=== PATIENT | male | born 1965 | race American Indian/Alaskan Native ===

== ENCOUNTER 2016-12-16 13:12 | Inpatient (IN) | payer MEDICARE ==
[2016-12-16 15:01] LABS: Bacteria,Urine 1+ /HPF (Negative); Bilirubin,Urine SM (Negative); Blood,Urine NEG (Negative); Ketones,Urine NEG (Negative); Leukocyte Esterase,Urine SM (Negative); Mucus,Urine 2+ /HPF; Nitrite,Urine NEG (Negative); Protein,Urine <15 mg/dL mg/dL (Negative)
[2016-12-16 15:05] LABS: Basophils % (Auto) 0.5 % (0.0-1.8); Eosinophils % (Auto) 0.6 % (0.0-4.3); Hematocrit 23.1 % (35.5-45.6); Mean Corpuscular HGB Conc 35 % (32-34); Mean Corpuscular Hemoglobin 35 pg (28-32); Mean Corpuscular Volume 102 fl (84-94); Red Blood Count 2.27 M/mm3 (3.65-5.03); Red Cell Distribution Width 17.7 % (13.2-15.2); White Blood Count 4.7 K/mm3 (4.5-11.0)
[2016-12-16 15:14] LABS: INR 1.73 (0.87-1.13)
[2016-12-16 15:15] LABS: Partial Thromboplastin Time 42.3 Sec. (24.2-36.6)
[2016-12-16 15:21] LABS: Alanine Aminotransferase 73 units/L (7-56); Albumin 2.3 g/dL (3.9-5); Albumin/Globulin Ratio 0.6 %; Alkaline Phosphatase 302 units/L (35-129); Anion Gap 14 mmol/L; Blood Urea Nitrogen 3 mg/dL (9-20); Calcium 7.9 mg/dL (8.4-10.2); Carbon Dioxide 27 mmol/L (22-30); Chloride 97.1 mmol/L (98-107); Glucose 92 mg/dL (75-100); Potassium 3.2 mmol/L (3.6-5.0); Sodium 135 mmol/L (137-145); Total Protein 5.9 g/dL (6.3-8.2)
[2016-12-16] MEDS ORDERED: MAGNESIUM SULFATE 2GM/50ML 2 GM/50 ML BAG IV ONE (15:47)
[2016-12-16] MEDS ORDERED: K-DUR PO ONE (15:47)
[2016-12-16] MEDS ORDERED: CEPHULAC PO ONE (15:48)
[2016-12-16] MEDS ORDERED: ROCEPHIN/NS 1 GM/50 ML 1 GM/50 ML BAG IV ONE (15:50)
[2016-12-16 16:11] LABS: Platelet Count 72 K/mm3 (140-440)
[2016-12-16 16:33] LABS: Albumin 2.3 g/dL (3.9-5); Albumin/Globulin Ratio 0.7 %; Bilirubin,Direct 4.7 mg/dL (0-0.2); Bilirubin,Indirect 2.7 mg/dL; Bilirubin,Total 7.4 mg/dL (0.1-1.2); Total Protein 5.8 g/dL (6.3-8.2)
--- NOTE | 2016-12-16 16:53 | Emergency Department Report ---
- General Chief complaint: Weakness Stated complaint: SICK Time Seen by Provider: 12/16/16 14:21 Source: patient Mode of arrival: Stretcher Limitations: No Limitations - History of Present Illness Initial comments: 51-year-old male with a past medical history of liver disease and alcohol abuse presents to the hospital from [facility] with generalized weakness. Patient is slightly lethargic and a overall poor historian. Pt admitted ont [facility] for alcohol abuse. No SI/HI. He just states he feels weak and eaten today. No pain complaints or focal weakness or numbness reported. Patient denies nausea, vomiting, or diarrhea. Patient does not know the cause of the liver disease denies a previous diagnosis of hepatitis. Severity scale (0 -10): 0 - Related Data Allergies Allergy/AdvReac Type Severity Reaction Status Date / Time No Known Allergies Allergy Unverified 12/16/16 13:45 ED Review of Systems ROS: Stated complaint: SICK Other details as noted in HPI Comment: All other systems reviewed and negative Other: Constitutional: No fevers chills Eyes: No eye pain visual changes ENT: No ear pain or throat pain Neck: Denies pain Respiratory: Denies cough wheezing shortness of breath Cardiovascular: Denies chest pain, palpitations, syncope GI: Denies abdominal pain, nausea, vomiting, diarrhea : Denies dysuria Musculoskeletal: Denies back pain Skin: Denies rash, lesions, erythema Neurologic: Denies headache, numbness Psychiatric: Denies suicidal ideation, hallucinations ED Past Medical Hx - Past Medical History Hx Liver Disease: Yes - Surgical History Past Surgical History?: No - Social History Smoking Status: Current Every Day Smoker Substance Use Type: Alcohol ED Physical Exam - General Limitations: No Limitations - Other Other exam information: General: No limitations, patient is alert in no acute distress Head exam: Atraumatic, normocephalic Eyes exam: Jaundice ENT: Moist mucous membrane, normal oropharynx Neck exam: Normal inspection, full range of motion, no meningismus nontender Respiratory exam: Clear to auscultation bilateral, no wheezes, rales, crackles Cardiovascular: Normal rate and rhythm, normal heart sounds Abdomen: Soft, nondistended, and nontender, with normal bowel sounds, no rebound, or guarding Extremity: Full range of motion normal inspection no deformity Back: Normal Inspection, full range of motion, no tenderness Neurologic: Lethargic, equal hand knuckler and foot dorsiflexion, sensation grossly intact Psychiatric: normal affect, normal mood Skin: Warm, dry, intact ED Course Vital Signs 12/16/16 13:29 Temperature 98.8 F Pulse Rate 82 Respiratory 20 Rate Blood Pressure 114/76 O2 Sat by Pulse 100 Oximetry - Reevaluation(s) Reevaluation #1: 12/16/16 16:56 Treated with potassium and lactulose and magnesium ED Medical Decision Making - Lab Data Result diagrams: 12/16/16 14:49 12/16/16 14:49 Lab Results 12/16/16 12/16/16 12/16/16 Range/Units 14:23 14:49 14:49 WBC 4.7 (4.5-11.0) K/mm3 RBC 2.27 L (3.65-5.03) M/mm3 Hgb 8.0 L (11.8-15.2) gm/dl Hct 23.1 L (35.5-45.6) % MCV 102 H (84-94) fl MCH 35 H (28-32) pg MCHC 35 H (32-34) % RDW 17.7 H (13.2-15.2) % Plt Count 72 L (140-440) K/mm3 Lymph % (Auto) 32.6 (13.4-35.0) % [place] % (Auto) 11.9 H (0.0-7.3) % Eos % (Auto) 0.6 (0.0-4.3) % Baso % (Auto) 0.5 (0.0-1.8) % Lymph # 1.5 (1.2-5.4) K/mm3 [place] # 0.6 (0.0-0.8) K/mm3 Eos # 0.0 (0.0-0.4) K/mm3 Baso # 0.0 (0.0-0.1) K/mm3 Seg Neutrophils % 54.4 (40.0-70.0) % Seg Neutrophils # 2.6 (1.8-7.7) K/mm3 PT 21.2 H (12.2-14.9) Sec. INR 1.73 H (0.87-1.13) APTT 42.3 H (24.2-36.6) Sec. Sodium (137-145) mmol/L Potassium (3.6-5.0) mmol/L Chloride (98-107) mmol/L Carbon Dioxide (22-30) mmol/L Anion Gap mmol/L BUN (9-20) mg/dL Creatinine (0.8-1.5) mg/dL Estimated GFR ml/min BUN/Creatinine Ratio % Glucose (75-100) mg/dL Calcium (8.4-10.2) mg/dL Magnesium (1.7-2.3) mg/dL Total Bilirubin (0.1-1.2) mg/dL Direct Bilirubin (0-0.2) mg/dL Indirect Bilirubin mg/dL AST (5-40) units/L ALT (7-56) units/L Alkaline Phosphatase (35-129) units/L Ammonia (25-60) umol/L Total Protein (6.3-8.2) g/dL Albumin (3.9-5) g/dL Albumin/Globulin Ratio % Urine Color Anya (Yellow) Urine Turbidity Clear (Clear) Urine pH 6.0 (5.0-7.0) Ur Specific [place] 1.013 (1.003-1.030) Urine Protein <15 mg/dl (Negative) mg/dL Urine Glucose (UA) Neg (Negative) mg/dL Urine Ketones Neg (Negative) mg/dL Urine Blood Neg (Negative) Urine Nitrite Neg (Negative) Urine Bilirubin Sm (Negative) Urine Ictotest Positive (Negative) Urine Urobilinogen 4.0 (<2.0) mg/dL Ur Leukocyte Esterase Sm (Negative) Urine WBC (Auto) 17.0 H (0.0-6.0) /HPF Urine RBC (Auto) 2.0 (0.0-6.0) /HPF U Epithel Cells (Auto) 2.0 (0-13.0) /HPF Urine Bacteria (Auto) 1+ (Negative) /HPF Urine Mucus 2+ /HPF Hepatitis A IgM Ab (NonReactive) Hep Bs Antigen (Negative) Hep B Core IgM Ab (NonReactive) Hepatitis C Antibody (NonReactive) Blood Type Antibody Screen 12/16/16 12/16/16 12/16/16 Range/Units 14:49 14:49 14:49 WBC (4.5-11.0) K/mm3 RBC (3.65-5.03) M/mm3 Hgb (11.8-15.2) gm/dl Hct (35.5-45.6) % MCV (84-94) fl MCH (28-32) pg MCHC (32-34) % RDW (13.2-15.2) % Plt Count (140-440) K/mm3 Lymph % (Auto) (13.4-35.0) % [place] % (Auto) (0.0-7.3) % Eos % (Auto) (0.0-4.3) % Baso % (Auto) (0.0-1.8) % Lymph # (1.2-5.4) K/mm3 [place] # (0.0-0.8) K/mm3 Eos # (0.0-0.4) K/mm3 Baso # (0.0-0.1) K/mm3 Seg Neutrophils % (40.0-70.0) % Seg Neutrophils # (1.8-7.7) K/mm3 PT (12.2-14.9) Sec. INR (0.87-1.13) APTT (24.2-36.6) Sec. Sodium 135 L (137-145) mmol/L Potassium 3.2 L (3.6-5.0) mmol/L Chloride 97.1 L (98-107) mmol/L Carbon Dioxide 27 (22-30) mmol/L Anion Gap 14 mmol/L BUN 3 L (9-20) mg/dL Creatinine 0.4 L (0.8-1.5) mg/dL Estimated GFR > 60 ml/min BUN/Creatinine Ratio 7.50 % Glucose 92 (75-100) mg/dL Calcium 7.9 L (8.4-10.2) mg/dL Magnesium 1.40 L (1.7-2.3) mg/dL Total Bilirubin 7.40 H 7.40 H (0.1-1.2) mg/dL Direct Bilirubin 4.7 H (0-0.2) mg/dL Indirect Bilirubin 2.7 mg/dL AST 172 H 173 H (5-40) units/L ALT 73 H 75 H (7-56) units/L Alkaline Phosphatase 302 H 303 H (35-129) units/L Ammonia 79.0 H (25-60) umol/L Total Protein 5.9 L 5.8 L (6.3-8.2) g/dL Albumin 2.3 L 2.3 L (3.9-5) g/dL Albumin/Globulin Ratio 0.6 0.7 % Urine Color (Yellow) Urine Turbidity (Clear) Urine pH (5.0-7.0) Ur Specific [place] (1.003-1.030) Urine Protein (Negative) mg/dL Urine Glucose (UA) (Negative) mg/dL Urine Ketones (Negative) mg/dL Urine Blood (Negative) Urine Nitrite (Negative) Urine Bilirubin (Negative) Urine Ictotest (Negative) Urine Urobilinogen (<2.0) mg/dL Ur Leukocyte Esterase (Negative) Urine WBC (Auto) (0.0-6.0) /HPF Urine RBC (Auto) (0.0-6.0) /HPF U Epithel Cells (Auto) (0-13.0) /HPF Urine Bacteria (Auto) (Negative) /HPF Urine Mucus /HPF Hepatitis A IgM Ab (NonReactive) Hep Bs Antigen (Negative) Hep B Core IgM Ab (NonReactive) Hepatitis C Antibody (NonReactive) Blood Type Antibody Screen 12/16/16 12/16/16 Range/Units 15:00 15:58 WBC (4.5-11.0) K/mm3 RBC (3.65-5.03) M/mm3 Hgb (11.8-15.2) gm/dl Hct (35.5-45.6) % MCV (84-94) fl MCH (28-32) pg MCHC (32-34) % RDW (13.2-15.2) % Plt Count (140-440) K/mm3 Lymph % (Auto) (13.4-35.0) % [place] % (Auto) (0.0-7.3) % Eos % (Auto) (0.0-4.3) % Baso % (Auto) (0.0-1.8) % Lymph # (1.2-5.4) K/mm3 [place] # (0.0-0.8) K/mm3 Eos # (0.0-0.4) K/mm3 Baso # (0.0-0.1) K/mm3 Seg Neutrophils % (40.0-70.0) % Seg Neutrophils # (1.8-7.7) K/mm3 PT (12.2-14.9) Sec. INR (0.87-1.13) APTT (24.2-36.6) Sec. Sodium (137-145) mmol/L Potassium (3.6-5.0) mmol/L Chloride (98-107) mmol/L Carbon Dioxide (22-30) mmol/L Anion Gap mmol/L BUN (9-20) mg/dL Creatinine (0.8-1.5) mg/dL Estimated GFR ml/min BUN/Creatinine Ratio % Glucose (75-100) mg/dL Calcium (8.4-10.2) mg/dL Magnesium (1.7-2.3) mg/dL Total Bilirubin (0.1-1.2) mg/dL Direct Bilirubin (0-0.2) mg/dL Indirect Bilirubin mg/dL AST (5-40) units/L ALT (7-56) units/L Alkaline Phosphatase (35-129) units/L Ammonia (25-60) umol/L Total Protein (6.3-8.2) g/dL Albumin (3.9-5) g/dL Albumin/Globulin Ratio % Urine Color (Yellow) Urine Turbidity (Clear) Urine pH (5.0-7.0) Ur Specific [place] (1.003-1.030) Urine Protein (Negative) mg/dL Urine Glucose (UA) (Negative) mg/dL Urine Ketones (Negative) mg/dL Urine Blood (Negative) Urine Nitrite (Negative) Urine Bilirubin (Negative) Urine Ictotest (Negative) Urine Urobilinogen (<2.0) mg/dL Ur Leukocyte Esterase (Negative) Urine WBC (Auto) (0.0-6.0) /HPF Urine RBC (Auto) (0.0-6.0) /HPF U Epithel Cells (Auto) (0-13.0) /HPF Urine Bacteria (Auto) (Negative) /HPF Urine Mucus /HPF Hepatitis A IgM Ab Non-reactive (NonReactive) Hep Bs Antigen Non-reactive (Negative) Hep B Core IgM Ab Non-reactive (NonReactive) Hepatitis C Antibody Non-reactive (NonReactive) Blood Type O POSITIVE Antibody Screen Negative - Radiology Data Radiology results: report reviewed CT abdomen and pelvis with IV contrast: Liver cirrhosis, fatty infiltration. Nonspecific 6 mm low density nodule in the right lobe of the liver. Chronic pancreatitis. Moderate amount of ascites. Small bilateral pleural effusions. Had a cholecystectomy. Wall of colon Appears diffusely thickened suggesting a nonspecific diffuse colitis. See report for other incidental findings - Medical Decision Making Patient has significantly elevated bilirubin, elevated LFTs, and elevated ammonia. Likely related to liver diseae. Patient received IV magnesium, by mouth potassium, and lactulose - Differential Diagnosis liver failure, infection, anemia, encephalopathy Critical Care Time: No Critical care attestation.: If time is entered above; I have spent that time in minutes in the direct care of this critically ill patient, excluding procedure time. ED Disposition Clinical Impression: Liver disease due to alcohol, Elevated liver enzymes, Elevated bilirubin, Coagulopathy, Hyperammonemia, Hypokalemia, Hypomagnesemia, Urine WBC increased, Thrombocytopenia Disposition: 09 OP ADMIT IP TO THIS HOSP Is pt being admited?: Yes Condition: Stable Time of Disposition: 17:33 (Dr Griffin/hosp)
--- NOTE | 2016-12-16 17:24 | Cat Scan Report ---
FINAL REPORT PROCEDURE: CT ABDOMEN PELVIS W CON TECHNIQUE: Computerized axial tomography of the abdomen and pelvis was performed during the IV injection of iodinated nonionic contrast. HISTORY: elevated lfts, etoh abuse COMPARISON: No prior studies are available for comparison. FINDINGS: Lower Lung bearden: There is a small amount of dependent atelectasis visualized bilaterally. Small bilateral pleural effusions are also present. Lung bases otherwise are unremarkable. Upper Abdomen: Liver density is heterogeneous although diffusely decreased. I suspect there is underlying cirrhosis as well as fatty infiltration. There is an indeterminate 6 millimeter low-density nodule in the right lobe of the liver posteriorly superiorly image 18 series 3. Gallbladder is surgically absent. The intrahepatic ducts are not distended. There is a 6.2 millimeter fat-density nodule small calcification in the right adrenal gland suggesting a myelo lipoma of the right adrenal gland. The adrenal glands are otherwise unremarkable. There are numerous coarse and irregular calcifications scattered throughout the entire pancreas consistent with chronic pancreatitis. The pancreas is otherwise unremarkable. The spleen does not appear to be enlarged. Kidneys, Ureters and Urinary bladder: There is a nonobstructing 3.8 millimeter calculus in the upper 3rd of the right kidney and 2 nonobstructing calculi in the lower 3rd of the left kidney measuring up to 2 millimeters in size. Kidneys are otherwise unremarkable. There is no hydronephrosis. No ureteral calculi are seen. Urinary bladder is only partially filled. Retroperitoneum: Atherosclerotic changes are seen in the abdominal aorta. No aneurysm is visualized. Nonspecific subcentimeter lymph nodes are seen in the retroperitoneum. No pathologically enlarged lymph nodes are identified. Bowel: Grewal of the entire colon appear mildly diffusely thickened suggesting a nonspecific diffuse colitis. No evidence of bowel obstruction. There however moderate amount of ascites scattered throughout the abdomen and pelvis. No free intraperitoneal gas is visualized. Normal-appearing appendix appears to be coiled in the right lower quadrant. Other: No acute bony abnormalities are identified. There mild to moderate osteoarthritis left hip, mild changes right hip. IMPRESSION: Liver density as described. There appears to be fatty infiltration I suspect there is also cirrhosis. Nonspecific 6 millimeter low-density nodule right lobe of the liver. Chronic pancreatitis. Moderate amount of ascites is present throughout the abdomen and pelvis and small bilateral pleural effusions are also present. Prior cholecystectomy. 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 Small nonobstructing renal calculi visualized bilaterally. Grewal of the colon appear mildly diffusely thickened suggesting a nonspecific diffuse colitis.
[2016-12-16] MEDS ORDERED: PROVENTIL IH PRN (17:45)
[2016-12-16] MEDS ORDERED: TYLENOL PO PRN (17:45)
[2016-12-16] MEDS ORDERED: ZOFRAN IV PRN (17:45)
--- NOTE | 2016-12-16 20:32 | History and Physical Report ---
History of Present Illness Date of admission: 12/16/16 17:45 Chief complaint: I feel sick History of present illness: 51 YO Male with ESLD, Nicotine Dependence, ETOH Abuse, Cirrhosis, Chronic Pancreatitis presents to ED for evaluation. Pt presents to the hospital from [facility] with generalized weakness. Pt admitted for ETOH Abuse. Pt unable to provide detailed history, but history provided by [facility] staff, and ED staff. Pt admitted to [facility] for 3 days, and has been observed by [facility] staff as acting confused and complaining of feeling weak, with worsening symptoms over the past 12 hours. No reports of fever, chills, CP, palpitations, Trauma, falls, BRBPR, Hemoptysis, known ill contacts, loss of bowel or bladder continence, skin rashes. Past History Past Medical History: liver disease, other (ETOH abuse, Nicotine Dependence, chronic pancreatitis) Past Surgical History: cholecystectomy Social history: single, smoking Family history: CAD, hypertension Medications and Allergies Allergies Allergy/AdvReac Type Severity Reaction Status Date / Time No Known Allergies Allergy Unverified 12/16/16 13:45 Home Medications Medication Instructions Recorded Confirmed Last Taken Type Unobtainable 12/16/16 12/16/16 Unknown History Active Meds: Active Medications Acetaminophen (Tylenol) 650 mg PO Q4H PRN PRN Reason: Pain MILD(1-3)/Fever >100.5/DOBSON Albuterol (Proventil) 2.5 mg IH Q4HRT PRN PRN Reason: Shortness Of Breath Ondansetron HCl (Zofran) 4 mg IV Q8H PRN PRN Reason: N/V unrelieved by Reglan Review of Systems ROS unobtainable: due to mental status Exam - Constitutional Vitals: Temp Pulse Resp BP Pulse Ox 98.8 F 88 16 119/72 100 12/16/16 13:29 12/16/16 18:29 12/16/16 18:29 12/16/16 18:29 12/16/16 18:29 General appearance: Present: mild distress - EENT Eyes: Present: PERRL, scleral icterus ENT: hearing intact, clear oral mucosa - Neck Neck: Present: supple, normal ROM - Respiratory Respiratory: bilateral: diminished - Cardiovascular Heart Sounds: Present: S1 & S2. Absent: rub, click - Extremities Extremities: pulses symmetrical, No edema Extremity abnormal: edema Peripheral Pulses: within normal limits - Abdominal General gastrointestinal: Present: soft, distended. Absent: hepatomegaly, splenomegaly, mass, hernia Male genitourinary: Present: normal - Integumentary Integumentary: Present: clear, dry, jaundice, decreased turgor - Musculoskeletal Musculoskeletal: generalized weakness - Psychiatric Psychiatric: no intact judgment & insight, no memory intact - Neurologic Neurologic: moves all extremities, no gait normal Results - Labs CBC & Chem 7: 12/16/16 14:49 12/16/16 14:49 Assessment and Plan - Patient Problems (1) End stage liver disease Current Visit: Yes Status: Acute Plan to address problem: GI consulted, No tylenol, supportive care, etoh cessation, (2) UTI (urinary tract infection) Current Visit: Yes Status: Acute Qualifiers: Urinary tract infection type: U Hematuria presence: H Indwelling urinary catheter type: I Encounter type: E Plan to address problem: IV abx, supportive care, (3) Ascites Current Visit: Yes Status: Acute Qualifiers: Ascites type: A Plan to address problem: secondary to ESLD, GI consulted, paracentesis if worsening symptoms, (4) Hyponatremia syndrome Current Visit: Yes Status: Acute Plan to address problem: IVF, supportive care, (5) Coagulopathy Current Visit: Yes Status: Acute Plan to address problem: Secondary to ESLD, No active bleeding at this time, supportive care, etoh cessation (6) Nicotine dependence Current Visit: Yes Status: Acute Qualifiers: Nicotine product type: N Substance use status: S Plan to address problem: Pt counseled, (7) Metabolic encephalopathy Current Visit: Yes Status: Acute Plan to address problem: lactulose, repeat physical exam, monitor ammonia level (8) DVT prophylaxis Current Visit: Yes Status: Acute
[2016-12-16] MEDS: LEVAQUIN 500MG/100ML 500 MG/100 ML BAG IV SCH (21:26)
[2016-12-17] MEDS ORDERED: CEPHULAC PO PRN (07:00)
--- NOTE | 2016-12-17 07:06 | Admit Criteria Form ---
Admission Criteria Documentation: GASTROENTEROLOGY GRG Clinical Indications for Admission to Inpatient Care ([place]/ check or initial the applicable condition/criteria) Hospital admission is needed for appropriate care of the patient because of ANY ONE of the following: [ ]I. Suspected acute intra-abdominal process indicated by 1 or more of the following(1)(2)(3)(4)(5): [ ]a) Hemodynamic instability [ ]b) Peritoneal signs present (eg, abdominal rigidity, rebound tenderness, absent bowel sounds) [ ]c) Bowel obstruction suspected (eg, persistent vomiting, abdominal distention)(6)(7)(8) [ ]d) Suspected mesenteric ischemia or ischemic colitis(9)(10)(11) [ ]e) Other signs or symptoms of acute abdominal disease (eg, severe pain, free air)(12) [ ]II. Hemoperitoneum(13)(14) [ ]III. Ascites requiring acute treatment indicated by 1 or more of the following (15)(16)(17)(18) [ ]a) Hemodynamic instability [ ]b) Peritoneal signs present (e.g., abdominal rigidity, rebound tenderness , absent bowel sounds) [ ]c) Tachypnea, Hypoxemia,or other respiratory symptoms remain after emergency or observation level care (as appropriate) [ ]d) Suspected infected ascites as indicated by 1 or more of the following( 19)(20) [ ]i) Fever [ ]ii) Vital sign abnormality [ ]iii) Abdominal pain or tenderness not relieved by paracentesis [ ]iv) Systemic signs of infection (e.g., elevated WBC count, fever) [ ]v) Ascitic fluid analysis consistent with infection ( e.g., elevated WBC count) [X ]IV. Severe liver disease indicated by 1 or more of the following (15)(16)(21 )(22)(23)(24)(25)(26)(27)(28) [ ]a) Acute hepatitis (e.g., transaminaselevel greater than 1000 IU/L) [X ]b) Acute elevation of prothrombintime to more than 50% above normal or INR greater than 1.5 [ ]c) Bilirubin greater than 20 mg/dL (342 micromoles/L) [ ]d) New-onset or worseninghepatic encephalopathy [ ]e) Acute elevation of serum ammonia level (eg, greater than 210 mcg/dL ( 150 micromoles/L)) [ ]f) Acute liver necrosis [ ]g) Vomiting that is severe of persistent [ ]h) Hemodynamic instability due to liver disease [ ]i) Acute renal failure [ ]j) Hepatic abscess [ ]k) Hepatic hydrothorax(29) [ ]l) Other indications of severe liver disease (e.g., persistent fever, ingestion of hepatotoxin)(30) [ ]V. Dehydration that is severe or persistent [ ]. Severe diarrhea indicated by 1 or more of the following (31)(32)(33)(34)( 35) : [ ]a) High fever or other high-risk infection situation [ ]b) Intractable bloody diarrhea (e.g., more than 6 bloody stools per day ) [ ]c) Suspected etiology (Clostridiumdifficile-associated diarrhea) that requires isolation or care not feasible in outpatient setting (36) [ ]d) Altered mental status that is severe or persistent [ ]e) Dehydration that is severe or persistent [ ]g) Peritoneal signs present (e.g., abdominal rigidity, rebound tenderness, absent bowel sounds) [ ]h) Abdominal ischemia suspected (9)(10)(11) [ ]i) Hemodynamic instability [ ]j) Severe electrolyte abnormalities requiring inpatient care [ ]k) Acute renal failure [ ]VII. Suspected toxic john colon(4)(9) [ ]VIII. Severe dysphagia indicated by 1 or more of the following(37)(38) [ ]a) Suspected esophageal perforation or fistula(39) [ ]b) Suspected cause that requires inpatient care (e.g., caustic ingestion, severe esophagitis) (40)(41) [ ]c) Dehydration that is severe or persistent [ ]d) Inability to manage secretions or maintain hydration [ ]e) Hemodynamic instability [ ]f) Severe electrolyte abnormalities requiring inpatient care [ ]g) Acute renal failure [ ]IX. Vomiting and 1 or more of the following (42)(43)(44)(45)(46) [ ]a) High fever or other high-risk infection situation [ ]b) Altered mental status that is severe or persistent [ ]c) Dehydration that is severe or persistent [ ]d) Peritoneal signs present (e.g., abdominal rigidity, rebound tenderness, absent bowel sounds) [ ]e) Hemodynamic instability [ ] f) Severe electrolyte abnormalities requiring inpatient care [ ] g) Acute renal failure [ ]h) Bowel obstruction suspected (e.g., severe vomiting, abdominal distension) [ ]i) Vomiting that is severe or persistent [ ]X. Gastroparesis and 1 or more of the following(46)(47)(48)(49): [ ]a) Dehydration that is severe or persistent [ ]b) Severe electrolyte abnormalities requiring inpatient care [ ]c) Acute renal failure [ ]d) Vomiting that is severe or persistent [ ]XI Obstipation and 1 or more of the following(50)(51)(52)(53) [ ]a) Complication of fecal impaction (eg, stercoral ulceration, perforation , venous compression, obstructive uropathy) [ ]b) Fecal disimpaction by digital fragmentation or mechanical disimpaction unsuccessful [ ]XII Complication of gastrostomy or jejunostomy feeding tube(54)(55)(56) [ ]a) Luminal perforation [ ]b) Gastrocolonic fistula [ ]c) Cellulitis of surrounding area with failure of outpatient treatment [ ]d) Necrotizing fasciitis [ ]e) Peritonitis [ ]f) Gastric herniation or prolapse [ ]g) Ischemic necrosis of gastric wall ("buried bumper") [ ]h) Other complication of gastrostomy or jejunostomy unable to be resolved at lower level of care [ ]XII. Complications of transplanted liver indicated by 1 or more of the following(57)(58)(59): [ ]a) Acute graft rejection requiring inpatient management (eg, intravenous immuno suppression)(60)(61) [ ]b) Failure of transplanted liver as indicated by 1 or more of the following: [ ]i. Acute hepatitis (eg, transaminase level greater than 1000 International Units per liter (IU/L)) [ ]ii. Acute elevation of prothrombin time to more than 50% above baseline or INR greater than 1.5 [ ]iii. Bilirubin greater than 20 mg/dL (342 micromoles/L) [ ]iv. New-onset or worsening hepatic encephalopathy [ ]v. Acute elevation of serum ammonia level (eg, greater than 210 mcg/dL (150 micromoles/L)) [ ]vi. Acute liver necrosis [ ]c) Infection requiring inpatient management (eg, Hemodynamic instability, need for intravenous antimicrobial treatment) (62)(63)(64)(65)(66) [ ]d) Other complication of transplanted liver (eg, thrombosis, autoimmune hepatitis, variceal bleeding) requiring inpatient management (67)(68)(69) [ ]XII. Complications of transplanted pancreas indicated by 1 or more of the following (70) [ ]a) Acute graft rejection requiring inpatient management (eg, intravenous immunosuppression)(60)(71) [ ]b) Failure of transplanted pancreas as indicated by 1 or more of the following: [ ]i. Serum amylase greater than 3 times the upper limit of normal or baseline [ ]ii. Serum lipase greater than 3 times the upper limit of normal or baseline [ ]iii. Imaging findings consistent with pancreatic inflammation or necrosis [ ]c) Infection requiring inpatient management (eg, Hemodynamic instability, need for intravenous antimicrobial treatment) (64)(65)(66) [ ]d) Other complication of transplanted pancreas (eg, graft thrombosis, pancreatic duct stricture, anastomotic leak) requiring inpatient management (72 ) [ ]XIII. Gastroenterology condition,Symptom or finding for which emergency and observation care have failed or are not considered appropriate. See General criteria: Observation care, General Admission criteria or Pediatric General Admission criteria guideline as appropriate. The original [facility] content created by [email or web address] has been revised. The portions of the content which have been revised are identified through the use of italic text or in bold,and [facility] has neither reviewed nor approved the modified material. All other unmodified content is copyright [facility]. Please see references footnoted in the original [facility] edition 2017 Admission Criteria Met: Yes
--- NOTE | 2016-12-17 09:27 | Progress Note ---
Assessment and Plan Assessment and plan: (1) End stage liver disease Current Visit: Yes Status: Acute Plan to address problem: GI consulted, No tylenol, supportive care, etoh cessation. Patient with significant hyperbilirubinemia. (2) UTI (urinary tract infection) Current Visit: Yes Status: Acute Qualifiers: Urinary tract infection type: U Hematuria presence: H Indwelling urinary catheter type: I Encounter type: E Plan to address problem: IV abx, supportive care, (3) Ascites Current Visit: Yes Status: Acute Qualifiers: Ascites type: A Plan to address problem: secondary to ESLD, GI consulted, paracentesis if worsening symptoms, (4) Hyponatremia syndrome Current Visit: Yes Status: Acute Plan to address problem: IVF, supportive care, (5) Coagulopathy Current Visit: Yes Status: Acute Plan to address problem: Secondary to ESLD, no active bleeding at this time. INR is 1.73. Recheck in a.m. (6) Nicotine dependence Current Visit: Yes Status: Acute Qualifiers: Nicotine product type: N Substance use status: S Plan to address problem: Pt counseled, (7) Metabolic encephalopathy Current Visit: Yes Status: Acute Plan to address problem: Resolved. Etiology is hepatic. Continue lactulose, monitor ammonia level. PT evaluation. (8) DVT prophylaxis Current Visit: Yes Status: Acute SCDs given the coagulopathy. History Interval history: Patient complains of generalized weakness and more pronounced bilateral lower extremity weakness. Hospitalist Physical - Constitutional Vitals: Temp Pulse Resp BP Pulse Ox 99.4 F 84 20 101/65 98 12/17/16 08:16 12/17/16 08:16 12/17/16 08:16 12/17/16 08:16 12/17/16 08:16 General appearance: Present: no acute distress - EENT Eyes: Present: PERRL, EOM intact ENT: hearing intact, clear oral mucosa, dentition normal - Neck Neck: Present: supple, normal ROM - Respiratory Respiratory effort: normal Respiratory: bilateral: CTA - Cardiovascular Rhythm: regular Heart Sounds: Present: S1 & S2. Absent: gallop, rub - Extremities Extremities: no ischemia, No edema, Full ROM - Abdominal General gastrointestinal: soft, non-tender, non-distended, normal bowel sounds - Integumentary Integumentary: Present: clear, warm, dry - Neurologic Neurologic: CNII-XII intact, moves all extremities Results - Labs CBC & Chem 7: 12/16/16 14:49 12/16/16 14:49 Labs: Laboratory Last Values WBC 4.7 K/mm3 (4.5-11.0) 12/16/16 14:49 RBC 2.27 M/mm3 (3.65-5.03) L 12/16/16 14:49 Hgb 8.0 gm/dl (11.8-15.2) L 12/16/16 14:49 Hct 23.1 % (35.5-45.6) L 12/16/16 14:49 MCV 102 fl (84-94) H 12/16/16 14:49 MCH 35 pg (28-32) H 12/16/16 14:49 MCHC 35 % (32-34) H 12/16/16 14:49 RDW 17.7 % (13.2-15.2) H 12/16/16 14:49 Plt Count 72 K/mm3 (140-440) L 12/16/16 14:49 Lymph % (Auto) 32.6 % (13.4-35.0) 12/16/16 14:49 [place] % (Auto) 11.9 % (0.0-7.3) H 12/16/16 14:49 Eos % (Auto) 0.6 % (0.0-4.3) 12/16/16 14:49 Baso % (Auto) 0.5 % (0.0-1.8) 12/16/16 14:49 Lymph # 1.5 K/mm3 (1.2-5.4) 12/16/16 14:49 [place] # 0.6 K/mm3 (0.0-0.8) 12/16/16 14:49 Eos # 0.0 K/mm3 (0.0-0.4) 12/16/16 14:49 Baso # 0.0 K/mm3 (0.0-0.1) 12/16/16 14:49 Seg Neutrophils % 54.4 % (40.0-70.0) 12/16/16 14:49 Seg Neutrophils # 2.6 K/mm3 (1.8-7.7) 12/16/16 14:49 PT 21.2 Sec. (12.2-14.9) H 12/16/16 14:49 INR 1.73 (0.87-1.13) H 12/16/16 14:49 APTT 42.3 Sec. (24.2-36.6) H 12/16/16 14:49 Sodium 135 mmol/L (137-145) L 12/16/16 14:49 Potassium 3.2 mmol/L (3.6-5.0) L 12/16/16 14:49 Chloride 97.1 mmol/L (98-107) L 12/16/16 14:49 Carbon Dioxide 27 mmol/L (22-30) 12/16/16 14:49 Anion Gap 14 mmol/L 12/16/16 14:49 BUN 3 mg/dL (9-20) L 12/16/16 14:49 Creatinine 0.4 mg/dL (0.8-1.5) L 12/16/16 14:49 Estimated GFR > 60 ml/min 12/16/16 14:49 BUN/Creatinine Ratio 7.50 % 12/16/16 14:49 Glucose 92 mg/dL (75-100) 12/16/16 14:49 Calcium 7.9 mg/dL (8.4-10.2) L 12/16/16 14:49 Magnesium 1.40 mg/dL (1.7-2.3) L 12/16/16 14:49 Total Bilirubin 7.40 mg/dL (0.1-1.2) H 12/16/16 14:49 Direct Bilirubin 4.7 mg/dL (0-0.2) H 12/16/16 14:49 Indirect Bilirubin 2.7 mg/dL 12/16/16 14:49 AST 173 units/L (5-40) H 12/16/16 14:49 ALT 75 units/L (7-56) H 12/16/16 14:49 Alkaline Phosphatase 303 units/L (35-129) H 12/16/16 14:49 Ammonia 79.0 umol/L (25-60) H 12/16/16 14:49 Total Protein 5.8 g/dL (6.3-8.2) L 12/16/16 14:49 Albumin 2.3 g/dL (3.9-5) L 12/16/16 14:49 Albumin/Globulin Ratio 0.7 % 12/16/16 14:49 Urine Color Anya (Yellow) 12/16/16 14:23 Urine Turbidity Clear (Clear) 12/16/16 14:23 Urine pH 6.0 (5.0-7.0) 12/16/16 14:23 Ur Specific [place] 1.013 (1.003-1.030) 12/16/16 14:23 Urine Protein <15 mg/dl mg/dL (Negative) 12/16/16 14:23 Urine Glucose (UA) Neg mg/dL (Negative) 12/16/16 14:23 Urine Ketones Neg mg/dL (Negative) 12/16/16 14:23 Urine Blood Neg (Negative) 12/16/16 14:23 Urine Nitrite Neg (Negative) 12/16/16 14:23 Urine Bilirubin Sm (Negative) 12/16/16 14:23 Urine Ictotest Positive (Negative) 12/16/16 14:23 Urine Urobilinogen 4.0 mg/dL (<2.0) 12/16/16 14:23 Ur Leukocyte Esterase Sm (Negative) 12/16/16 14:23 Urine WBC (Auto) 17.0 /HPF (0.0-6.0) H 12/16/16 14:23 Urine RBC (Auto) 2.0 /HPF (0.0-6.0) 12/16/16 14:23 U Epithel Cells (Auto) 2.0 /HPF (0-13.0) 12/16/16 14:23 Urine Bacteria (Auto) 1+ /HPF (Negative) 12/16/16 14:23 Urine Mucus 2+ /HPF 12/16/16 14:23 Hepatitis A IgM Ab Non-reactive (NonReactive) 12/16/16 15:58 Hep Bs Antigen Non-reactive (Negative) 12/16/16 15:58 Hep B Core IgM Ab Non-reactive (NonReactive) 12/16/16 15:58 Hepatitis C Antibody Non-reactive (NonReactive) 12/16/16 15:58 Blood Type O POSITIVE 12/16/16 15:00 Antibody Screen Negative 12/16/16 15:00
--- NOTE | 2016-12-17 10:58 | Gastroenterology Consultation ---
History of Present Illness - Reason for Consult Consult date: 12/17/16 ESLD Requesting physician: DC BORJA - History of Present Illness Patient is a 51 y/o male who presented from [place] to ER for evaluation of generalized weakness. PMH significant for ESLD, nicotine dependence, ETOH abuse , cirrhosis, and chronic pancreatitis. Pt states he started drinking alcohol over 10 years ago after the murder of his sister. He admits to drinking on average 1/2 pint of liquor and 4 beers a day. Hx of IV drug use as well prior to 10 years ago. No Fhx of liver disease. He reports dark black stools prior to admission but states stool is lightening up since hospitalization. Admits to intermittent abd pain for years that radiates across his upper abdomen from chronic pancreatitis. Denies fever, wt loss, pruritus, N/V, hematemesis, diarrhea, constipation, or hematochezia. No NSAID use. No previous EGD. Past History Past Medical History: liver disease, other (ETOH abuse, Nicotine Dependence, chronic pancreatitis) Past Surgical History: cholecystectomy, Other (ear, hand, legs) Social history: single, smoking, alcohol abuse Family history: CAD, hypertension Medications and Allergies Allergies Allergy/AdvReac Type Severity Reaction Status Date / Time No Known Allergies Allergy Unverified 12/16/16 13:45 Home Medications Medication Instructions Recorded Confirmed Last Taken Type Unobtainable 12/16/16 12/16/16 Unknown History Active Meds: Active Medications Albuterol (Proventil) 2.5 mg IH Q4HRT PRN PRN Reason: Shortness Of Breath Levofloxacin/Dextrose (Levaquin 500mg/100ml) 500 mg in 100 mls @ 100 mls/hr IV Q24H HEAVENLY PRN Reason: Protocol Last Admin: 12/16/16 21:26 Dose: 100 mls/hr Lactulose (Cephulac) 20 gm PO QDAY PRN PRN Reason: Constipation Ondansetron HCl (Zofran) 4 mg IV Q8H PRN PRN Reason: N/V unrelieved by Reglan Review of Systems - Review of Systems Constitutional: weakness Gastrointestinal: abdominal pain, melena Exam - Constitutional Vital Signs: Temp Pulse Resp BP Pulse Ox 99.4 F 84 20 101/65 98 12/17/16 08:16 12/17/16 08:16 12/17/16 08:16 12/17/16 08:16 12/17/16 08:16 General appearance: no acute distress, disheveled - EENT Eyes: PERRL, EOM intact, scleral icterus ENT: hearing intact - Neck Neck: supple, normal ROM - Respiratory Respiratory: bilateral: CTA - Cardiovascular Rhythm: regular Heart Sounds: Present: S1 & S2 Extremities: No edema - Gastrointestinal General gastrointestinal: Present: soft, tender (generlized), non-distended, normal bowel sounds - Integumentary Integumentary: Present: warm, dry - Neurologic Neurological: alert and oriented x3 - Psychiatric Psychiatric: cooperative - Labs CBC & Chem 7: 12/16/16 14:49 12/16/16 14:49 Assessment and Plan 1.ESLD 2.Ascites] 3.metabolic encephalopathy 4.ETOH abue 5.UTI 6.melena -hepatitis panel negative -INR 1.73, T. patricia 7.4, AST 173, ALT 75, Alk phos 303, plt 72 -HGB 8- continue to monitor H&H and transfuse as needed -no active signs of bleeding overnight or this am -will start on PPI, Keep NPO after MN- will schedule EGD in am -etiology of liver disease most likey 2/2 ETOH abuse -CT scan revealed fatty liver infiltration, cirrhosis, chronic pancreatitis, moderate ascites and a low density nodule in right lobe of the liver -will order AFP and MRI for further evaluation of nodule -ascites- abd soft, non-distended- will given Lasix 20mg IV now with 20meq of K -continue supportive care -discussed with pt alcohol cessation -WA protocol -will follow -
[2016-12-17] MEDS ORDERED: LASIX IV ONE ×2 (11:27→12:00)
[2016-12-17] MEDS ORDERED: PROTONIX PO SCH ×2 (12:00→19:12)
[2016-12-17] MEDS: K-DUR PO SCH (12:49)
[2016-12-17] MEDS: LEVAQUIN 500MG/100ML 500 MG/100 ML BAG IV SCH (23:07)
[2016-12-18 04:59] LABS: Basophils % (Auto) 0.4 % (0.0-1.8); Eosinophils % (Auto) 0.5 % (0.0-4.3); Hematocrit 21.9 % (35.5-45.6); Hemoglobin 7.5 gm/dl (11.8-15.2); Mean Corpuscular HGB Conc 35 % (32-34); Mean Corpuscular Hemoglobin 36 pg (28-32); Mean Corpuscular Volume 104 fl (84-94); Red Cell Distribution Width 18.7 % (13.2-15.2); White Blood Count 4.9 K/mm3 (4.5-11.0)
[2016-12-18 05:04] LABS: Platelet Count 88 K/mm3 (140-440)
[2016-12-18 05:15] LABS: Alanine Aminotransferase 54 units/L (7-56); Albumin/Globulin Ratio 0.5 %; Alkaline Phosphatase 255 units/L (35-129); Anion Gap 13 mmol/L; Bilirubin,Direct 3.3 mg/dL (0-0.2); Bilirubin,Indirect 2.1 mg/dL; Blood Urea Nitrogen 5 mg/dL (9-20); Calcium 7.7 mg/dL (8.4-10.2); Carbon Dioxide 26 mmol/L (22-30); Chloride 101.3 mmol/L (98-107); Glucose 87 mg/dL (75-100); Potassium 4.1 mmol/L (3.6-5.0); Sodium 136 mmol/L (137-145); Total Protein 5.9 g/dL (6.3-8.2)
[2016-12-18] MEDS: K-DUR PO SCH (10:33)
[2016-12-18] MEDS: PROTONIX PO SCH (10:33)
[2016-12-18] MEDS: THERAGRAN-M Tab PO SCH (10:33)
--- NOTE | 2016-12-18 14:06 | Magnetic Resonance Report ---
MRI OF THE ABDOMEN WITH AND WITHOUT CONTRAST: FINDINGS: Multiplanar and multisequence MRI of the liver with and without gadolinium is submitted. Compared to the CT abdomen pelvis with contrast dated 11/26/16. The previously described 1 cm right hepatic lobe nodule is very poorly imaged on this exam. There is excessive patient breathing motion artifact. This lesion is identified on a few sequences and appears to represent a small cyst. There is mild fatty change in the liver. No additional liver mass or cirrhotic changes. The spleen is normal size and contour. The gallbladder has been surgically removed. No biliary dilatation. The pancreas is within normal limits. The kidneys and adrenal glands are unremarkable. The aorta is normal caliber. Small ascites is present throughout the abdomen. Small bilateral pleural effusions and mild cardiomegaly are also noted. IMPRESSION: Very limited examination due to patient breathing motion. A right hepatic lobe cyst is suspected, see above. Small ascites. Mild cardiomegaly and small pleural effusions.
[2016-12-18] MEDS ORDERED: WATER FOR IRRIG STERILE IR ONE (14:20)
--- NOTE | 2016-12-18 14:34 | Anesthesia Day of Surgery ---
Anesthesia Day of Surgery - Day of Surgery Patient Examined: Yes Patient H&P Reviewed: Yes Patient is NPO: Yes
--- NOTE | 2016-12-18 14:34 | Anesthesia Consultation ---
Anesthesia Consult and Med Hx Date of service: 12/18/16 - Airway Anesthetic Teeth Evaluation: Poor (one loose tooth) ROM Head & Neck: Adequate Mental/Hyoid Distance: Adequate Mallampati Class: Class II Intubation Access Assessment: Probably Good - Pulmonary Exam CTA: Yes - Cardiac Exam Cardiac Exam: RRR - Pre-Operative Health Status ASA Pre-Surgery Classification: ASA3 Proposed Anesthetic Plan: MAC - Pulmonary Hx Smoking: Yes (10 years 6-7 a day) Hx Asthma: No COPD: No Hx Pneumonia: No Hx Sleep Apnea: No - Cardiovascular System Hx Pacemaker: No - Central Nervous System Hx Psychiatric Problems: Yes (PTSD, Anxiety and depression) - Gastrointestinal Hx Ulcer: No - Endocrine Hx Renal Disease: No Hx End Stage Renal Disease: No Hx Cirrhosis: Yes Hx Liver Disease: Yes Hx Hypothyroidism: No Hx Hyperthyroidism: No - Other Systems Hx Alcohol Use: Yes Hx Substance Use: Yes (marijuana) Hx Cancer: No Hx Obesity: No
[2016-12-18] MEDS ORDERED: NACL 0.9% 1000 ML 1,000 ML IV SCH (15:00)
--- NOTE | 2016-12-18 15:03 | Post Anesthesia Evaluation ---
- Post Anesthesia Evaluation Patient Participated: Yes Airway Patent: Yes Stable Respiratory Function: Yes Nausea/Vomiting: No Temp > 96.8F: Yes Pain Manageable: Yes Adequeate Hydration: Yes Anesthesia Complications: No
--- NOTE | 2016-12-18 15:06 | Post Operative Note ---
Pre-op diagnosis: anemia Post-op diagnosis: same Findings: EGD: 4 cm hiatal hernia - possible Yancy (bx's) - gastritis (bx's) - negative other Procedure: EGD Anesthesia: MAC Surgeon: TRI CROUCH Estimated blood loss: none Pathology: list Specimen disposition: to lab Condition: stable Disposition: floor
[2016-12-18] MEDS ORDERED: DIPRIVAN 10 MG/ML IV ONE (15:10)
--- NOTE | 2016-12-18 15:23 | Post Anesthesia Evaluation ---
- Post Anesthesia Evaluation Patient Participated: Yes Airway Patent: Yes Stable Respiratory Function: Yes Temp > 96.8F: Yes Pain Manageable: Yes Adequeate Hydration: Yes Anesthesia Complications: No Block Receding Appropriately: Not Applicable
--- NOTE | 2016-12-18 15:39 | Operative Report ---
PROCEDURE: EGD with cold biopsies. INDICATIONS: 1. Anemia. 2. Melena. MEDICATIONS: Propofol per [facility]AN[facility] SPEAKING NANNY. COMPLICATIONS: None. DESCRIPTION OF PROCEDURE: The patient brought to procedure suite. The patient had the procedure discussed with him at length. All risks, complications, and benefits were discussed, which the patient signed for the procedure to be performed. The patient was placed in left lateral decubitus position. Mouth block was placed in the patient's oral cavity. After adequate sedation medication as above, the endoscope was introduced into the mouth and brought to the level of the second portion of duodenum. Retroflexion view performed. The patient's vital signs remained stable throughout the procedure. FINDINGS: There was some white material noted along the upper to mid esophagus. This raised the possibility of Yancy esophagitis. Biopsies were taken and sent to pathology. There was a large 4 cm hiatal hernia in GE junction. The esophagus otherwise appeared normal with no signs of varices noted. There was moderate antral gastritis noted. Biopsies were taken and sent to pathology. The remaining stomach otherwise appeared to be normal. Duodenum appeared to be normal. Retroflexion view performed in the stomach showed no other pathology other than noted above. The patient tolerated the procedure well. No complications during the procedure. IMPRESSION: 1. Possible Yancy, biopsies performed. 2. Hiatal hernia. 3. Gastritis, biopsies performed. 4. Otherwise, normal stomach. 5. Normal duodenum. RECOMMENDATIONS: 1. Follow up biopsy results. 2. Stool for H. pylori, if present treat. 3. PPI daily. 4. Diflucan 100 mg p.o. daily. 5. Follow hematocrit and transfuse as needed. 6. We will follow. JOB# [id number] [facility]
--- NOTE | 2016-12-18 19:47 | Progress Note ---
Assessment and Plan Assessment and plan: (1) End stage liver disease Current Visit: Yes Status: Acute Plan to address problem: GI consulted, No tylenol, supportive care, etoh cessation. Patient with significant hyperbilirubinemia. (2) UTI (urinary tract infection) Current Visit: Yes Status: Acute Qualifiers: Urinary tract infection type: U Hematuria presence: H Indwelling urinary catheter type: I Encounter type: E Plan to address problem: IV abx, supportive care, (3) Ascites Current Visit: Yes Status: Acute Qualifiers: Ascites type: A Plan to address problem: secondary to ESLD, GI consulted, paracentesis if worsening symptoms, (4) Hyponatremia syndrome Current Visit: Yes Status: Acute Plan to address problem: IVF, supportive care, (5) Coagulopathy Current Visit: Yes Status: Acute Plan to address problem: Secondary to ESLD, no active bleeding at this time. INR is 1.73. Recheck in a.m. (6) Nicotine dependence Current Visit: Yes Status: Acute Qualifiers: Nicotine product type: N Substance use status: S Plan to address problem: Pt counseled, (7) Metabolic encephalopathy Current Visit: Yes Status: Acute Plan to address problem: Resolved. Etiology is hepatic. Continue lactulose, monitor ammonia level. PT evaluation. (8) DVT prophylaxis Current Visit: Yes Status: Acute SCDs given the coagulopathy. Hospitalist Physical - Constitutional Vitals: Temp Pulse Resp BP Pulse Ox 97.9 F 86 20 115/77 99 12/18/16 17:30 12/18/16 17:30 12/18/16 17:30 12/18/16 17:30 12/18/16 17:30 General appearance: Present: no acute distress Results - Labs CBC & Chem 7: 12/18/16 04:32 12/18/16 04:32 Labs: Laboratory Last Values WBC 4.9 K/mm3 (4.5-11.0) 12/18/16 04:32 RBC 2.10 M/mm3 (3.65-5.03) L 12/18/16 04:32 Hgb 7.5 gm/dl (11.8-15.2) L 12/18/16 04:32 Hct 21.9 % (35.5-45.6) L 12/18/16 04:32 MCV 104 fl (84-94) H 12/18/16 04:32 MCH 36 pg (28-32) H 12/18/16 04:32 MCHC 35 % (32-34) H 12/18/16 04:32 RDW 18.7 % (13.2-15.2) H 12/18/16 04:32 Plt Count 88 K/mm3 (140-440) L 12/18/16 04:32 Lymph % (Auto) 30.2 % (13.4-35.0) 12/18/16 04:32 [place] % (Auto) 12.8 % (0.0-7.3) H 12/18/16 04:32 Eos % (Auto) 0.5 % (0.0-4.3) 12/18/16 04:32 Baso % (Auto) 0.4 % (0.0-1.8) 12/18/16 04:32 Lymph # 1.5 K/mm3 (1.2-5.4) 12/18/16 04:32 [place] # 0.6 K/mm3 (0.0-0.8) 12/18/16 04:32 Eos # 0.0 K/mm3 (0.0-0.4) 12/18/16 04:32 Baso # 0.0 K/mm3 (0.0-0.1) 12/18/16 04:32 Seg Neutrophils % 56.1 % (40.0-70.0) 12/18/16 04:32 Seg Neutrophils # 2.7 K/mm3 (1.8-7.7) 12/18/16 04:32 PT 21.2 Sec. (12.2-14.9) H 12/16/16 14:49 INR 1.73 (0.87-1.13) H 12/16/16 14:49 APTT 42.3 Sec. (24.2-36.6) H 12/16/16 14:49 Sodium 136 mmol/L (137-145) L 12/18/16 04:32 Potassium 4.1 mmol/L (3.6-5.0) D 12/18/16 04:32 Chloride 101.3 mmol/L (98-107) 12/18/16 04:32 Carbon Dioxide 26 mmol/L (22-30) 12/18/16 04:32 Anion Gap 13 mmol/L 12/18/16 04:32 BUN 5 mg/dL (9-20) L 12/18/16 04:32 Creatinine 0.5 mg/dL (0.8-1.5) L 12/18/16 04:32 Estimated GFR > 60 ml/min 12/18/16 04:32 BUN/Creatinine Ratio 10.00 % 12/18/16 04:32 Glucose 87 mg/dL (75-100) 12/18/16 04:32 Calcium 7.7 mg/dL (8.4-10.2) L 12/18/16 04:32 Magnesium 1.40 mg/dL (1.7-2.3) L 12/16/16 14:49 Total Bilirubin 5.40 mg/dL (0.1-1.2) H 12/18/16 04:32 Direct Bilirubin 3.3 mg/dL (0-0.2) H 12/18/16 04:32 Indirect Bilirubin 2.1 mg/dL 12/18/16 04:32 AST 105 units/L (5-40) H 12/18/16 04:32 ALT 54 units/L (7-56) 12/18/16 04:32 Alkaline Phosphatase 255 units/L (35-129) H 12/18/16 04:32 Ammonia 79.0 umol/L (25-60) H 12/16/16 14:49 Total Protein 5.9 g/dL (6.3-8.2) L 12/18/16 04:32 Albumin 2.0 g/dL (3.9-5) L 12/18/16 04:32 Albumin/Globulin Ratio 0.5 % 12/18/16 04:32 Urine Color Anya (Yellow) 12/16/16 14:23 Urine Turbidity Clear (Clear) 12/16/16 14:23 Urine pH 6.0 (5.0-7.0) 12/16/16 14:23 Ur Specific [place] 1.013 (1.003-1.030) 12/16/16 14:23 Urine Protein <15 mg/dl mg/dL (Negative) 12/16/16 14:23 Urine Glucose (UA) Neg mg/dL (Negative) 12/16/16 14:23 Urine Ketones Neg mg/dL (Negative) 12/16/16 14:23 Urine Blood Neg (Negative) 12/16/16 14:23 Urine Nitrite Neg (Negative) 12/16/16 14:23 Urine Bilirubin Sm (Negative) 12/16/16 14:23 Urine Ictotest Positive (Negative) 12/16/16 14:23 Urine Urobilinogen 4.0 mg/dL (<2.0) 12/16/16 14:23 Ur Leukocyte Esterase Sm (Negative) 12/16/16 14:23 Urine WBC (Auto) 17.0 /HPF (0.0-6.0) H 12/16/16 14:23 Urine RBC (Auto) 2.0 /HPF (0.0-6.0) 12/16/16 14:23 U Epithel Cells (Auto) 2.0 /HPF (0-13.0) 12/16/16 14:23 Urine Bacteria (Auto) 1+ /HPF (Negative) 12/16/16 14:23 Urine Mucus 2+ /HPF 12/16/16 14:23 Hepatitis A IgM Ab Non-reactive (NonReactive) 12/16/16 15:58 Hep Bs Antigen Non-reactive (Negative) 12/16/16 15:58 Hep B Core IgM Ab Non-reactive (NonReactive) 12/16/16 15:58 Hepatitis C Antibody Non-reactive (NonReactive) 12/16/16 15:58 Blood Type O POSITIVE 12/16/16 15:00 Antibody Screen Negative 12/16/16 15:00
[2016-12-18] MEDS ORDERED: ATIVAN IV PRN ×2 (19:49)
[2016-12-18] MEDS ORDERED: VITAMIN B-1 100 MG, FOLVITE 1 MG, INFUVITE 10 ML in NACL 0.9% 1000 ML 1,000 ML IV ONE (20:30)
[2016-12-19] MEDS: LEVAQUIN 500MG/100ML 500 MG/100 ML BAG IV SCH (01:20)
[2016-12-19] MEDS: K-DUR PO SCH (09:40)
[2016-12-19] MEDS: PROTONIX PO SCH (09:40)
[2016-12-19] MEDS: THERAGRAN-M Tab PO SCH (09:40)
--- NOTE | 2016-12-19 18:28 | Gastroenterology Progress Note ---
Assessment and Plan - Patient Problems (1) Anemia Current Visit: Yes Status: Acute Qualifiers: Anemia type: A Iron deficiency anemia type: I Vitamin B12 deficiency anemia type: V Folate deficiency anemia type: F Bone marrow failure anemia type: B Hemolytic anemia type: H Other causes of anemia: O Chronic kidney disease stage: C Plan to address problem: - I suspect multifactorial from liver disease + EtOH + malnutrition. - EGD negative yesterday. Given EtOH, I would continue protonix. - Will plan colonoscopy as an outpatient. - Continue MVI with iron daily. 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 - OK to d/c the patient home from our service. Would send out on protonix but not lactulose or nadolol given mild disease. - Will sign off; encouraged patient to return to [place] to complete treatment. - Will sign off; please call if needed. Subjective Date of service: 12/19/16 Principal diagnosis: ESLD, Anemia Interval history: The patient has no N/V/abdominal pain/anorexia. Eating without melena or hematemesis. Had a brown BM today on lactulose. Objective - Constitutional Vitals: Temp Pulse Resp BP Pulse Ox 98.3 F 91 H 18 105/68 100 12/19/16 11:00 12/19/16 11:00 12/19/16 11:00 12/19/16 11:00 12/19/16 11:00 General appearance: no acute distress - EENT Eyes: PERRL, EOM intact, scleral icterus - Respiratory Respiratory effort: normal Respiratory: bilateral: CTA - Cardiovascular Rhythm: regular Heart Sounds: Present: S1 & S2 - Gastrointestinal General gastrointestinal: Present: soft, non-tender, non-distended - Labs CBC & Chem 7: 12/18/16 04:32 12/18/16 04:32 Labs: Laboratory Results - last 24 hr 12/18/16 20:58 Vitamin B12 > 2000 H
--- NOTE | 2016-12-19 19:48 | Progress Note ---
Assessment and Plan Assessment and plan: (1) End stage liver disease Current Visit: Yes Status: Acute Plan to address problem: GI consulted, No tylenol, supportive care, etoh cessation. Patient with significant hyperbilirubinemia. (2) UTI (urinary tract infection) Current Visit: Yes Status: Acute Qualifiers: Urinary tract infection type: U Hematuria presence: H Indwelling urinary catheter type: I Encounter type: E Plan to address problem: IV abx, supportive care, (3) Ascites Current Visit: Yes Status: Acute Qualifiers: Ascites type: A Plan to address problem: secondary to ESLD, GI consulted, paracentesis if worsening symptoms, (4) Hyponatremia syndrome Current Visit: Yes Status: Acute Plan to address problem: IVF, supportive care, (5) Coagulopathy Current Visit: Yes Status: Acute Plan to address problem: Secondary to ESLD, no active bleeding at this time. INR is 1.73. Recheck in a.m. (6) Nicotine dependence Current Visit: Yes Status: Acute Qualifiers: Nicotine product type: N Substance use status: S Plan to address problem: Pt counseled, (7) Metabolic encephalopathy Current Visit: Yes Status: Acute Plan to address problem: Resolved. Etiology is hepatic. Continue lactulose, monitor ammonia level. PT evaluation. (8) DVT prophylaxis Current Visit: Yes Status: Acute SCDs given the coagulopathy. Hospitalist Physical - Constitutional Vitals: Temp Pulse Resp BP Pulse Ox 98.4 F 89 18 112/68 100 12/19/16 14:00 12/19/16 14:00 12/19/16 14:00 12/19/16 14:00 12/19/16 14:00 General appearance: Present: no acute distress Results - Labs CBC & Chem 7: 12/18/16 04:32 12/18/16 04:32 Labs: Laboratory Last Values WBC 4.9 K/mm3 (4.5-11.0) 12/18/16 04:32 RBC 2.10 M/mm3 (3.65-5.03) L 12/18/16 04:32 Hgb 7.5 gm/dl (11.8-15.2) L 12/18/16 04:32 Hct 21.9 % (35.5-45.6) L 12/18/16 04:32 MCV 104 fl (84-94) H 12/18/16 04:32 MCH 36 pg (28-32) H 12/18/16 04:32 MCHC 35 % (32-34) H 12/18/16 04:32 RDW 18.7 % (13.2-15.2) H 12/18/16 04:32 Plt Count 88 K/mm3 (140-440) L 12/18/16 04:32 Lymph % (Auto) 30.2 % (13.4-35.0) 12/18/16 04:32 [place] % (Auto) 12.8 % (0.0-7.3) H 12/18/16 04:32 Eos % (Auto) 0.5 % (0.0-4.3) 12/18/16 04:32 Baso % (Auto) 0.4 % (0.0-1.8) 12/18/16 04:32 Lymph # 1.5 K/mm3 (1.2-5.4) 12/18/16 04:32 [place] # 0.6 K/mm3 (0.0-0.8) 12/18/16 04:32 Eos # 0.0 K/mm3 (0.0-0.4) 12/18/16 04:32 Baso # 0.0 K/mm3 (0.0-0.1) 12/18/16 04:32 Seg Neutrophils % 56.1 % (40.0-70.0) 12/18/16 04:32 Seg Neutrophils # 2.7 K/mm3 (1.8-7.7) 12/18/16 04:32 PT 21.2 Sec. (12.2-14.9) H 12/16/16 14:49 INR 1.73 (0.87-1.13) H 12/16/16 14:49 APTT 42.3 Sec. (24.2-36.6) H 12/16/16 14:49 Sodium 136 mmol/L (137-145) L 12/18/16 04:32 Potassium 4.1 mmol/L (3.6-5.0) D 12/18/16 04:32 Chloride 101.3 mmol/L (98-107) 12/18/16 04:32 Carbon Dioxide 26 mmol/L (22-30) 12/18/16 04:32 Anion Gap 13 mmol/L 12/18/16 04:32 BUN 5 mg/dL (9-20) L 12/18/16 04:32 Creatinine 0.5 mg/dL (0.8-1.5) L 12/18/16 04:32 Estimated GFR > 60 ml/min 12/18/16 04:32 BUN/Creatinine Ratio 10.00 % 12/18/16 04:32 Glucose 87 mg/dL (75-100) 12/18/16 04:32 Calcium 7.7 mg/dL (8.4-10.2) L 12/18/16 04:32 Magnesium 1.40 mg/dL (1.7-2.3) L 12/16/16 14:49 Total Bilirubin 5.40 mg/dL (0.1-1.2) H 12/18/16 04:32 Direct Bilirubin 3.3 mg/dL (0-0.2) H 12/18/16 04:32 Indirect Bilirubin 2.1 mg/dL 12/18/16 04:32 AST 105 units/L (5-40) H 12/18/16 04:32 ALT 54 units/L (7-56) 12/18/16 04:32 Alkaline Phosphatase 255 units/L (35-129) H 12/18/16 04:32 Ammonia 79.0 umol/L (25-60) H 12/16/16 14:49 Total Protein 5.9 g/dL (6.3-8.2) L 12/18/16 04:32 Albumin 2.0 g/dL (3.9-5) L 12/18/16 04:32 Albumin/Globulin Ratio 0.5 % 12/18/16 04:32 Vitamin B12 > 2000 pg/mL (211-911) H 12/18/16 20:58 Urine Color Anya (Yellow) 12/16/16 14:23 Urine Turbidity Clear (Clear) 12/16/16 14:23 Urine pH 6.0 (5.0-7.0) 12/16/16 14:23 Ur Specific [place] 1.013 (1.003-1.030) 12/16/16 14:23 Urine Protein <15 mg/dl mg/dL (Negative) 12/16/16 14:23 Urine Glucose (UA) Neg mg/dL (Negative) 12/16/16 14:23 Urine Ketones Neg mg/dL (Negative) 12/16/16 14:23 Urine Blood Neg (Negative) 12/16/16 14:23 Urine Nitrite Neg (Negative) 12/16/16 14:23 Urine Bilirubin Sm (Negative) 12/16/16 14:23 Urine Ictotest Positive (Negative) 12/16/16 14:23 Urine Urobilinogen 4.0 mg/dL (<2.0) 12/16/16 14:23 Ur Leukocyte Esterase Sm (Negative) 12/16/16 14:23 Urine WBC (Auto) 17.0 /HPF (0.0-6.0) H 12/16/16 14:23 Urine RBC (Auto) 2.0 /HPF (0.0-6.0) 12/16/16 14:23 U Epithel Cells (Auto) 2.0 /HPF (0-13.0) 12/16/16 14:23 Urine Bacteria (Auto) 1+ /HPF (Negative) 12/16/16 14:23 Urine Mucus 2+ /HPF 12/16/16 14:23 Hepatitis A IgM Ab Non-reactive (NonReactive) 12/16/16 15:58 Hep Bs Antigen Non-reactive (Negative) 12/16/16 15:58 Hep B Core IgM Ab Non-reactive (NonReactive) 12/16/16 15:58 Hepatitis C Antibody Non-reactive (NonReactive) 12/16/16 15:58 Blood Type O POSITIVE 12/16/16 15:00 Antibody Screen Negative 12/16/16 15:00
[2016-12-20] MEDS: PROTONIX PO SCH (09:07)
[2016-12-20] MEDS: THERAGRAN-M Tab PO SCH (09:07)
[2016-12-20] MEDS: K-DUR PO SCH (09:08)
--- NOTE | 2016-12-20 10:43 | Discharge Summary ---
Providers - Providers Date of Admission: 12/16/16 17:45 Date of discharge: 12/20/16 Attending physician: CATHY ZHU 12/17/16 09:27 Physical Therapy Evaluation and Treat [CONS] Routine Comment: Reason For Exam: gen weakness Primary care physician: [employer] Hospitalization Condition: Stable Disposition: DC-01 TO HOME OR SELFCARE Time spent for discharge: 35 min Exam - Constitutional Vitals: Temp Pulse Resp BP Pulse Ox 97 F L 83 20 117/79 99 12/20/16 07:43 12/20/16 07:43 12/20/16 09:01 12/20/16 07:43 12/20/16 07:43 Plan Activity: advance as tolerated Diet: low cholesterol, low salt Additional Instructions: Return to [facility] [place] to complete treatment for alcohol detox Follow up with: ZOHAIB CONTRERAS MD [Primary Care Provider] - 7 Days EMILIA GUZMAN MD [Staff Physician] - 14 Days Prescriptions: Multivitamin Tab W-MINERAL [Multiple Vitamin/Mineral (Theragran M)] 1 each PO QDAY #30 tablet Nitrofurantoin Macrocrysta(Nf) [Macrodantin CAP] 100 mg PO QID #20 capsule Pantoprazole [Protonix TAB] 40 mg PO QDAY #30 tablet
[2016-12-20 17:53] VITALS: BP 120/82
== END 2016-12-20 18:11 | disposition home or self-care (01) | DRG 432 ==
LOC: ED 13:12 → 3A 17:45
PROVIDERS: ADMIT Internal Medicine; ATTEND Internal Medicine
PROC: 0DB28ZX Excision of Middle Esophagus, Via Natural or Artificial Opening Endoscopic, Diagnostic (ICD-10-PCS; principal; 2016-12-18)
PROC: 0DB18ZX Excision of Upper Esophagus, Via Natural or Artificial Opening Endoscopic, Diagnostic (ICD-10-PCS; 2016-12-18)
DX: K70.31 Alcoholic cirrhosis of liver with ascites (principal); G93.41 Metabolic encephalopathy; N18.6 End stage renal disease; N39.0 Urinary tract infection, site not specified; D68.9 Coagulation defect, unspecified; E87.1 Hypo-osmolality and hyponatremia; K86.1 Other chronic pancreatitis; F10.10 Alcohol abuse, uncomplicated; F17.200 Nicotine dependence, unspecified, uncomplicated; E87.6 Hypokalemia; E83.42 Hypomagnesemia; D69.6 Thrombocytopenia, unspecified; E80.6 Other disorders of bilirubin metabolism; D64.9 Anemia, unspecified; K44.9 Diaphragmatic hernia without obstruction or gangrene; K29.70 Gastritis, unspecified, without bleeding; Z82.49 Family history of ischemic heart disease and other diseases of the circulatory system; Z90.49 Acquired absence of other specified parts of digestive tract
CPT/HCPCS: 36415; 74177; 74183; 80053; 80074; 81001; 82106; 82140; 82607; 82747; 83735; 85025; 85610; 85730; 86850; 86900; 86901; 87076; 87086; 87186; 88305; 88342; 96365; 96367; 99406; A9577; G8978-GP; G8979-GP; G8980-GP; J0696; J1940; J1956; J2405; J2704; J3411; J3475; J7030; Q9967